=== PATIENT | female | born 1960 | race Caucasian/White ===

== ENCOUNTER → 2019-10-31 08:41 | Outpatient (CLI) | payer OTHER, SELFPAY ==
[2019-10-31 08:38] VITALS: BMI 24.9
--- NOTE | 2019-10-31 08:42 | RAD_ITS ---
STUDY: X-RAY - RIGHT KNEE REASON FOR EXAM: Female, 59 years old. Knee pain TECHNIQUE: 4 view(s) of the knee. COMPARISON: None. FINDINGS: There is evidence of an osteochondral defect in the medial condyle of the distal femur. Normal visualized proximal tibia and fibula. Normal proximal tibiofibular articulation. 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 There is severe degenerative arthrosis of the medial femorotibial compartment with severe joint space narrowing. There is mild degenerative arthrosis of the lateral femorotibial compartment. There is severe degenerative arthrosis of the patellofemoral articulation. Small joint effusion. RAD/Knee 4 or More Views IMPRESSION: Degenerative arthrosis. Electronically Signed: Gautam Malki, at 8:58 EDT , Service support ,
== END ==
PROVIDERS: Referring Provider Orthopaedic Surgery; Visit Provider Orthopaedic Surgery
DX: M25.561 Pain in right knee (principal)
CPT/HCPCS: 73564

== ENCOUNTER → 2019-11-07 13:32 | Outpatient (CLI) | payer OTHER, SELFPAY ==
[2019-10-31 10:15] VITALS: BMI 31.4
--- NOTE | 2019-11-07 13:33 | CT_ITS ---
STUDY: CT SCAN OF LOWER EXTREMITY RIGHT REASON FOR EXAM: Female, 59 years old. PREOP PLANNING GIANNI, PT STATED RT KNEE PAIN, GIANNI MELISSA RADIATION DOSAGE (If Supplied By Facility): CTDIvol = ( 30.70 ) mGy, DLP = ( 2011.59 ) mGycm. Individualized dose optimization techniques were used for this CT.? TECHNIQUE: Multiple axial tomographic images of the hip joints, knee joints and ankle joints were obtained. Coronal and sagittal reconstruction was obtained as well. COMPARISON: None. FINDINGS: The right hip joint is unremarkable. No significant joint space narrowing is seen. There is a marked degree of osteoarthritis of the medial compartment of the knee joint. Subchondral sclerosis of the medial femoral condyle as well as the medial tibial plateau. There is evidence of a 5.7 mm osteochondral defect of the medial aspect of the medial femoral condyle. Degenerative spurring is also seen along the medial and lateral femoral condyles as well as the lateral tibial plateau. Moderate degree of joint space narrowing of the femoral patellar joint with a large degenerative spur of the lateral condyle. Focal calcification in the posterior aspect of the knee joint. 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 Large joint effusion. Imaging of the ankle joint is unremarkable. CT/Extremity Lower without Contra IMPRESSION: Marked degree of osteoarthritis involving the medial compartment of the knee joint with evidence of osteochondral defect of the medial aspect of the medial femoral condyle as described. Moderate degree of femoral patellar osteoarthritis with the degenerative spur of the anterior femoral condyle. Electronically Signed: Gautam Malik, at 14:17 EDT , Service support ,
== END ==
PROVIDERS: Referring Provider Orthopaedic Surgery; Visit Provider Orthopaedic Surgery
DX: M17.11 Unilateral primary osteoarthritis, right knee (principal)
CPT/HCPCS: 73700

== ENCOUNTER 2019-12-18 19:02 | Observation (INO) | payer OTHER, SELFPAY ==
[2019-10-31 10:15] VITALS: BMI 31.4
[2019-12-02 12:45] LABS: Partial Thromboplast Time 24.6 Seconds (24.1-36.2); Prothrombin Time (Protime)PT. 12.6 SECONDS (11.7-14.9)
[2019-12-18] VITALS (17 sets, daily range): BP systolic 110–171; BP diastolic 56–89; PULSE 79–103; RESP 16–18; TEMP 36.2–37; O2SAT 94–100; BMI 25.3; BMI 26.8
--- NOTE | 2019-12-18 09:57 | HP.PCM_ITS ---
History and Physical Date of Admission: 12/18/19 Intake Vital Signs 10/31/19 BMI 31.4 10/31/19 Height 5 ft 4 in 10/31/19 Weight: 145 lb 10/31/19 BMI 24.9 Intake Visit Reasons: RIGHT KNEE Allergies codeine Allergy (Verified 10/31/19 08:40) Itching Medications atorvastatin 10 mg tablet 10 mg PO DAILY 10/31/19 [History Confirmed 10/31/19] losartan 100 mg tablet 100 mg PO DAILY 10/31/19 [History Confirmed 10/31/19] PFSH Social History (Updated 10/31/19 @ 10:[address] Fabian Suarez DO) Smoking Status: Heavy Smoker (>10/day) HPI RIGHT KNEE: Details: Parts of this documentation were recorded by a scribe, this documentation accurately reflects the service provided and the decisions made by me, Fabian Suarez DO 10/31/19 0752. ALVA FIELDS is a 59 year old F here today for right knee pain, she did have a left TKA 08/22/[address] Jackson. She states her right knee has been painful since the left was done. She does work neurological surgery teacher in a pen[employer] and her pain is worst at the end of the day and at night and she is using ibuprofen daily but it is not helping much. She denies any bracing because she has tried it but it increases her pain. She denies any injections in the right knee because they were never helpful in the left knee. Patient ambulates with and antalgic gait and has difficulty with flexion and has extension lag. Denies any past fractures, no gout history and no rheumatological issues. She did have a spine surgery due to djd. Patient is beginning to have difficulty with work, stairs which she needs to do laundry and sleep due to the pain. ROS Musc Reports as per HPI, Reports abnormal walking, Reports joint pain, Reports limited joint movement, Reports stiffness Skin/Breast Reports as per HPI Neuro Yes as per HPI, Yes abnormal walking Ortho Exam Right Knee Skin/Wound: Yes CDI, No erythema, No ecchymosis, No swelling Knee ROM: No ROM-Extension -20 to 0 (18), No ROM-Flexion 0-140 (93) Examination: Yes Crepitus, Yes Pain with flexion, Yes Pain with extention Stability: NML: Anterior Drawer, NML: Posterior Drawer Patella Translation: 1 Apprehension with Lateral Translation: No KNEE: varus fixed due to bone on bone nature, full ankle rom without pain General awake alert no acute distress Psych mood appropriate nonconfrontational calm neuro intact sensation to light touch able neurovascular intact EHL tibialis anterior gastrocsoleus compartment soft Vascular 2 out of 4 pedal pulse Skin no concerning skin lesions in the right lower extremity Left Knee Patella Translation: 1 Right Hip internal rotation @90 degree flexion: 50 degrees external rotation @90 degree extension: 80 degrees Supplemental Info 10/31/2019 x-ray right knee severe tricompartment mental DJD [id number] with eburnation of medial tibial plateau and medial femoral condyles severe varus deformity Assessment & Plan Problems 1. Primary osteoarthritis of right knee M17.11 Plan Explained that due to the bone on bone progression of her OA in the right knee and she is a candidate for a TKA. Discussed the limits in relief of injections due to the severity. Reviewed the risk of stiffness post op due to the flexion contracture. Discussed Iovera treatment prior to surgery and the benefits. We discussed risk of contacting the COVID-19 virus and the potential consequences of respiratory failure requiring ventilator assistance and . Patient does wish to proceed and assume this risk considering the severe worsening progressing symptoms and that the significant change in her activities of daily living including being able to sleep work comfortably or doing any activities without pain including laundry. Which she is barely able to perform these normal activities secondary to Risks, benefits and alternatives of surgery reviewed including but not limited to bleeding, infection, nerve, artery and/or tissue damage, fracture, VTE, mechanical feel of the knee, continued pain, stiffness and expected post- operative course. Reviewed need for preop CT scan for operative planning. Follow up with iovera if approved or sooner if pain, swelling, numbness or associated symptoms, or concerns develop. All questions answered. Patient in agreement of plan. Orders Orders: Knee 4 or More Views Today M25.561 Extremity Lower without Contra Today M17.11 Coding Level of Care Code Off vis,est,level 4 Diagnoses Primary osteoarthritis of right knee M17.11 ??Osteoarthritis type: primary I have re-examined the patient. There are no clinical changes since date of exam Procedure Criteria COVID Risk Discussion: [In addition to standard risk risk of COVID-19 exposure and potential consequences including respiratory failure ventilation and patient wishes to assume this risk secondary to ongoing progressive worsening symptoms that are limiting activities of daily living.]
[2019-12-18 10:07] LABS: Magnesium 1.9 mg/dL (1.6-2.6)
[2019-12-18] MEDS: Celecoxib 200 MG Capsule 400 MG PO (10:29)
[2019-12-18] MEDS: Acetaminophen 500 MG Tablet 1000 MG PO ×2 (10:29→21:29)
[2019-12-18] MEDS: Gabapentin 600 MG Tablet PO (10:30)
[2019-12-18] MEDS: Lactated Ringers 1,000 ML 100 ML IV (10:30)
[2019-12-18] MEDS: Scopolamine 1mg/72hr Patch 1 PATCH TRANSDERM. (10:31)
[2019-12-18 10:56] LABS: Bedside Glucose 78 mg/dL (70-110)
[2019-12-18] MEDS: Cefazolin 2 GM in 0.9% Normal Saline 100 ML IV (11:55)
[2019-12-18] MEDS: Lidocaine/D5W 2,000 MG/250 ML IV.SOLN 2000 MG (12:15)
[2019-12-18] MEDS: Bupivacaine Mpf 0.5% 30 ML VIAL (13:45)
[2019-12-18] MEDS: Epinephrine (1 mg/ml) 1 MG/ML VIAL (13:45)
[2019-12-18] MEDS: Betamethasone/Betamethasone 30 MG/5 ML Vial (13:45)
[2019-12-18] MEDS: 0.9% Normal Saline (Pres. free 10 ML Vial (13:45)
[2019-12-18] MEDS: Lactated Ringers 1,000 ML 500 ML IV (14:20)
--- NOTE | 2019-12-18 14:24 | DCINST_ITS ---
Discharge Diet: No Restrictions Weight Bearing Status: Weight bearing as tolerated Call your doctor if you observe: Shortness of breath, Chest pain Additional Instructions: Ice and elevate one week while not ambulating. Ambulation is encouraged. Weightbearing as tolerated. Use assistive devise for stability. Encourage FULL knee extension and flexion 1 time EVERY time you get up and down and MULTIPLE times per day. No showering 72 hours after surgery. Begin showering postop day #3. Remove the dressing prior to shower and gently wash with warm water and antibacterial soap then pat dry and place abdominal pad (or plain gauze) and LALA hose over top. This is to be done daily. Do not submerge for 3 weeks. If not showering daily after the initial 72 hours then you must clean incision and change dressing daily. Do not allow animals near the incision area. Keep clean. Follow anticoagulation recommendations as prescribed. Do not take any NSAIDs while on blood thinner. Do not take any additional narcotic pain medication other than what was perscribed on you surgery day without discussing with physician. Start physical therapy. If you are not currently scheduled for physical therapy or you are unsure of appointment time please call office [facility] to arrange. Call Dr. Suarez with any concerns. Allergies/Adverse Reactions: Allergies codeine Allergy (Verified 12/18/19 10:20) Itching Medications to take at Discharge atorvastatin 10 mg tablet 10 mg PO DAILY 10/31/19 losartan 100 mg tablet 100 mg PO DAILY 10/31/19 Apixaban [Eliquis] 2.5 mg PO BID #30 tab 12/18/19 Cephalexin [Keflex] 1,000 mg PO Q8 #4 cap 12/18/19 Hydrocodone/Acetaminophen [[place] 5-325 Tablet] 5 mg PO Q4H PRN PRN 5 Days #60 tablet 12/18/19 Ondansetron HCl [Zofran] 4 mg PO Q6H PRN PRN 5 Days #20 tab 12/18/19 The following prescriptions were given: Apixaban [Eliquis] 2.5 mg PO BID #30 tab Transmission Status: Pending to [facility] Cephalexin [Keflex] 1,000 mg PO Q8 #4 cap Transmission Status: Pending to [facility] Hydrocodone/Acetaminophen [[place] 5-325 Tablet] 5 mg PO Q4H PRN PRN 5 Days #60 tablet PRN Reason: Pain Transmission Status: Sent to [facility] Ondansetron HCl [Zofran] 4 mg PO Q6H PRN PRN 5 Days #20 tab PRN Reason: Nausea Transmission Status: Pending to [facility] Primary Care Physician: CHRISTIANO CHAUHAN [Other] Test Results: Test results from this visit will be discussed in further detail at your follow- up appointment, if applicable. Please Follow Up With: Fabian Suarez DO - 2 weeks
--- NOTE | 2019-12-18 14:24 | OP.PCM_ITS ---
Report of Operation Date of Procedure: 12/18/19 Description of Surgical Findings:: Preoperative diagnosis: Right knee DJD Postoperative diagnosis: Same Procedure: Right total knee arthroplasty CT guided Robotic Assisted Implant: Shira triathlon cemented femoral component size 3, cemented tibial baseplate size 3, cemented asymmetric patella size polyethylene X3 size 9 CS Anesthesia: General with adductor canal block Tourniquet time: 300 mmHg Complications: None Condition: Stable to PACU Estimated blood loss: 125 cc Indication for procedure: This is a 59-year-old female with long standing degenerative joint disease of the knee with significant flexion contracture and varus deformity who has failed conservative treatment and wished to proceed with elective total knee arthroplasty. Risk benefits and alternatives were reviewed including; risk of bleeding, infection, nerve artery and tissue damage, c ontinued pain, postoperative stiffness, venous thromboembolism, need for postoperative rehabilitation, mechanical feel to the knee, and expected postoperative course. The operative CT and templating was performed with component sizing Procedure: The patient was met in the preoperative holding area. The operative extremity was identified by both patient and physician and was marked. Patient was met by anesthesia. An adductor canal block was placed by anesthesia postoperatively the patient was brought back to the operating room on a wheeled cart and transferred to the operating table in the supine position. Anesthesia was started. A well-padded tourniquet was placed on the operative extremity. The patient was prepped and draped in the usual sterile fashion. A timeout was called to ensure the proper patient procedure and extremity were being contemplated. An Esmarch was used to exsanguinate the extremity. The tourniquet was inflated. A 10 blade scalpel was used to make a midline incision down through the skin and subcutaneous tissue. Skin retractors placed. Bovie was used to perform meticulous hemostasis. full-thickness flaps were elevated medial and lateral along the joint capsule. A deep blade scalpel was used to perform a medial parapatellar arthrotomy. The knee was brought to full extension. A Bovie was used to release the soft tissues off the most proximal aspect of the medial tibial plateau a three-quarter inch curved osteotome was also used for this process. The infrapatellar fat pad was excised. The fat pad was excised partially anterior lateral portion the anterior medial was elevated from the femur. At this point our intra-articular femoral array was placed of a 45 degree angle proximal and posterior to the medial epicondyle. Our tibial array was placed greater than 1 hands breath below the incision at a 20 degree angle stab incisions were used for this case were attached and checked with the robotic software. Tourniquet was let down. At this point registration avelar were taken throughout the knee as well as checkpoints placed in the femur and tibia once the knee was registered then tensioned the medial and lateral ligaments in extension and 90 degrees of flexion. We then used these numbers to adjust our components within parameters to balance the knee in both flexion and extension once this was done on our monitor we then proceeded with using the robotic arm to make our tibial plateau cut and anterior posterior and chamfer cuts on the femur we then trialed and achieved the desired plan with a well- balanced knee. Lug holes were drilled in the femur the tibia preparation was completed with a fin punch and the patella was prepared by first using a caliper to ensure sufficient bone stock and a patellar reamer to remove the desired amount of bone locals were drilled for an asymmetric poly-. We then brought the knee through range of motion with excellent patellar tracking. We thoroughly irrigated the knee with a trial components were removed a posterior capsular injection with her standard cocktail was performed the aqua Mantis was also used to aid in hemostasis. Betadine rinse was allowed to sit and washed out components were press-fit into place. Aricept rinse was then used followed by several more rate liters of irrigation after it was allowed to sit. Joint capsule was closed with #1 Ethibond [id number] followed by Vicryl in the subcutaneous tissues staple in the skin arrays and checkpoints were removed prior to closure all counts were correct stab incisions were closed with a stable standard dressing in the form of Mepilex for the main incision Xeroform 4 x 4 and Tegaderm over pin site holes. Thigh-high LALA hose applied over top of dressing. Patient tolerated the procedure well and was directed to PACU in stable condition no intraoperative complications
--- NOTE | 2019-12-18 14:54 | RAD_ITS ---
STUDY: X-RAY - RIGHT KNEE REASON FOR EXAM: Female, 59 years old. POST OP RIGHT TOTAL KNEE TECHNIQUE: 2 view(s) of the knee. COMPARISON: 10/31/2019 FINDINGS: Patient is status post right knee replacement. Components demonstrate anatomic alignment. No plain film evidence of postoperative complication. Normal postoperative soft tissue swelling and subcutaneous emphysema. RAD/Knee 1 or 2 Views IMPRESSION: Replaced right knee joint demonstrates anatomic alignment with no postoperative complications noted. Electronically Signed: Tonio Osman MD at 15:11 EDT , Service support ,
[2019-12-18] MEDS: Ketorolac 30 MG/ML Syringe 15 MG IV (15:11)
[2019-12-18] MEDS: Cefazolin 1 GM/50 ML BAG IV ×2 (15:12→21:28)
[2019-12-18] MEDS: oxyCODONE 5 MG Tablet PO (17:14)
--- NOTE | 2019-12-18 19:25 | SUR.PHASEII ---
Patient unable to work with PT due to legs keep buckeling. Charge nurse notified Dr Atkinson, he would like patient to be admitted overnight so that therapy can work with her tomorrow.
[2019-12-18] MEDS: Lactated Ringers 1,000 ML 125 ML IV (20:33)
[2019-12-19 00:23] VITALS: BP 162/76; PULSE 91; RESP 16; TEMP 36.7; O2SAT 96
[2019-12-19] MEDS: HYDROcodone Bitartrate/Apap 5/325 Tablet PO ×2 (01:36→10:03)
[2019-12-19 05:30] VITALS: BP 128/105; PULSE 96; RESP 16; TEMP 36.8; O2SAT 96
[2019-12-19] MEDS: Cefazolin 1 GM/50 ML BAG IV (05:32)
[2019-12-19] MEDS: Acetaminophen 500 MG Tablet 1000 MG PO (05:36)
[2019-12-19 09:51] VITALS: BP 129/58; PULSE 71; RESP 18; TEMP 36.4; O2SAT 97
[2019-12-19] MEDS: APIXABAN 2.5 MG TABLET PO (10:05)
[2019-12-19] MEDS: Losartan Potassium 100 MG Tablet PO (10:05)
--- NOTE | 2019-12-19 10:40 | CASEMGMT ---
VINNY BAEZ Face to Face with patient for initial transition planning/care coordination assessment. RN CM introduced self and role at [facility]. Patient sitting in chair, alert and oriented. Patient willing to participate in assessment and is able to answer all questions appropriately. Care providers, pharmacy, and demographics verified. Patient wishes to discharge home and is setup with [facility] for outpatient therapy. Patient states she has no further needs or concerns at this time. CM to follow for discharge planning needs that may arise. PCP: Monisha Khan at [facility] Dept Specialists: shabnam Suarez Preferred Pharmacy: [facility] retail Insurance: MMO Prescription Benefit: yes Living Will/HPOA: independent LNOK: significant other, daughter Living Arrangements: Patient lives with significant other in a 1 story home with 3 steps and railing to enter the home. Patient was independent prior to surgery. Transportation: significant other DME/HHC: Patient has shower chair, raised toilet, cane, walker, and grab bars at home. Patient is scheduled for outpatient therapy. Disposition Plan: Patient to discharge home with outpatient therapy, family support, and follow-up plans in place. Elizabeth BUSTAMANTE, RN, CM
--- NOTE | 2019-12-19 12:10 | PHA.DC.MC ---
Pharmacy Service has performed discharge medication reconciliation and counseling for this patient. 1. APIXABAN 2.5MG PO BID X 15 DAYS 2. CEPHALEXIN 100MG PO X 2 DOSES POST OP 3. HYDROCODONE/ACETAMINOPHEN 5/325MG PO Q4H PRN PAIN FOR 5 DAYS 4. ONDANSETRON 4MG PO Q6H PRN NAUSEA The patient's discharge medication list was reviewed for discrepancies and discrepancies were resolved. Home Medications atorvastatin 10 mg tablet 10 mg PO DAILY 10/31/19 losartan 100 mg tablet 100 mg PO DAILY 10/31/19 Apixaban [Eliquis] 2.5 mg PO BID #30 tab 12/18/19 Cephalexin [Keflex] 1,000 mg PO Q8 #4 cap 12/18/19 Hydrocodone/Acetaminophen [[place] 5-325 Tablet] 5 mg PO Q4H PRN PRN 5 Days #60 tab 12/18/19 Ondansetron HCl [Zofran] 4 mg PO Q6H PRN PRN 5 Days #20 tab 12/18/19 The patient was counseled on the following discharge medications and changes in medications for homegoing were reviewed. The Reason for Use, instructions for use, and potential side effects were reviewed for all new medications. The patient's questions regarding all of their medications were answered. The patient was able to verbally demonstrate an understanding of their discharge medications.
== END 2019-12-19 12:44 | disposition home or self-care (01) ==
LOC: SDC 12-19 08:21 → MS3 12-19 08:21
PROVIDERS: Anesthesiology; Admitting Provider Orthopaedic Surgery; Referring Provider Orthopaedic Surgery; Visit Provider Orthopaedic Surgery
PROC: 0SRC0JZ Replacement of Right Knee Joint with Synthetic Substitute, Open Approach (ICD-10-PCS; CPT 27447; principal; 2019-12-18 12:10)
DX: M17.11 Unilateral primary osteoarthritis, right knee (principal); F17.200 Nicotine dependence, unspecified, uncomplicated; Z79.899 Other long term (current) drug therapy
CPT/HCPCS: 01400; 27447; 64447; S2900; 73560; 82962; 83735; 85610; 85730; 86850; 86900; 86901; 87081; 87635; 96361; 96365; 96366; 97110; 97162; 97166; 97530; 99218; 99251; 99406; C1776; G2023; J7120; G0378; G0379; G0463; J0702; J2405; J3490; U0003